=== PATIENT | male | born 1965 | race Caucasian/White ===

== ENCOUNTER 2017-10-17 10:01 | Day surgery (SDC) | payer OTHER ==
[~2017-10-17] VITALS: Ht 175.3 cm; Wt 90.3 kg
--- NOTE | ~2017-10-17 | OP ---
PATIENT NAME: CHELO GRACE MEDICAL RECORD: [id number] :63 LOCATION:[facility] ADMISSION DATE: SURGEON: ROB LORENZO MD DATE OF OPERATION: 10/17/2017 PREOPERATIVE DIAGNOSES: 1. Left inguinal hernia. 2. Hyperlipidemia. POSTOPERATIVE DIAGNOSES: 1. Left inguinal hernia. 2. Hyperlipidemia. PROCEDURE: Left inguinal hernia repair with medium PHS mesh. SURGEON: Rob Lorenzo MD REPORT OF PROCEDURE: The patient's left groin was prepped and draped in sterile fashion. An oblique incision was made above the inguinal ligament. Electrocautery was used to dissect through the subcutaneous tissues down to the external oblique fascia. This fascia was opened up to the external ring using electrocautery. A [place] was then placed around the spermatic cord. The patient had some fatty tissue on the spermatic cord, but no signs of a cord lipoma. The patient did have a small hernia sac present in an indirect fashion. This hernia sac was freed up from the surrounding structures and high ligated with a 3-0 silk. This was pushed back down into the peritoneal cavity. I then made an opening at the base of the inguinal canal and opened up the preperitoneal space of [place]. A medium PHS mesh was inserted and sutured down on all 4 sides using multiple interrupted 0 Vicryl. We then found the ilioinguinal nerve and this was high ligated. The wound was then irrigated out thoroughly with normal saline and care was taken to assure there was no sign of any bleeding. At this point, the external oblique fascia was closed with running 2-0 Vicryl, Jesus's was closed with interrupted 3-0 Vicryl and the skin was closed with running subcutaneous 5-0 Monocryl. A total of 10 mL of 0.25% Marcaine with epinephrine was infused into the surrounding tissues and the wound was dressed appropriately. COMPLICATIONS: None. CONDITION: Stable. ANESTHESIA: General endotracheal and local. BLOOD LOSS: Minimal. TRANSINT:[id number] Voice Confirmation ID: [id number] DOCUMENT ID: [id number] OPERATIVE REPORT [id number] CHELO GRACE ROB LORENZO MD at 0142 CC: MICHAEL JARVIS [id number] DICTATION DATE: 10/17/17 1545 ENGINEERING DOCUMENT CONTROL CLERK: 10/17/17 1634 [facility] 10/17/17 [facility] [address] [place] [address]
[~2017-10-17 10:01] MED LIST: PRAVACHOL40 MG PO
[2017-10-17 10:37] LABS: BASOPHILS 0.8 % (0-2); EOSINOPHILS 2.4 % (0-7); HEMATOCRIT 46.3 % (42.0-54.0); HEMOGLOBIN 16.1 g/dL (13.5-17.5); IMMATURE GRANULOCYTES 0.3 % (0-5); LYMPHOCYTES 42.3 % (15-50); MCH 27.9 pg (26.0-34.0); MCHC 34.8 g/dL (31.0-37.0); MCV 80.1 fL (80.0-100.0); MEAN PLATELET VOLUME 10.1 fL (7.4-10.4); MONOCYTES 7.3 % (2-11); NEUTROPHILS 46.9 % (40-80); PLATELET COUNT 242 10x3/uL (130-400); RBC 5.78 10x6/uL (4.20-6.10); RDW 14.3 % (11.5-14.5); WBC 5.9 10x3/uL (4.8-10.8)
[2017-10-17 10:58] LABS: ANION GAP 10.5 mmol/L (8-16); CALCIUM 8.9 mg/dL (8.5-10.1); CARBON DIOXIDE 29.9 mmol/L (21.0-32.0); CREATININE - SERUM 1.1 mg/dL (0.6-1.3); POTASSIUM - SERUM 4.4 mmol/L (3.5-5.1)
[2017-10-17 11:54] VITALS: BP 160/89; Ht 175.3 cm; Wt 90.3 kg
[2017-10-17] MEDS ORDERED: HYDROCODONE-APA1 TAB PO (15:44)
== END 2017-10-17 18:30 | disposition home or self-care (01) ==
LOC: D.OPS 10:01
PROVIDERS: Surgery
DX: K40.90 Unilateral inguinal hernia, without obstruction or gangrene, not specified as recurrent (principal); Z01.812 Encounter for preprocedural laboratory examination; E78.5 Hyperlipidemia, unspecified